=== PATIENT | male | born 1945 | race Caucasian/White ===

== ENCOUNTER 2019-10-10 13:46 | Outpatient (RCR) | payer MEDICARE ==
[2019-12-06] MEDS ORDERED: ZINC50TA51 PO (15:54)
[2019-12-06] MEDS ORDERED: LOSA50TA63 PO (15:54)
[2019-12-06] MEDS ORDERED: UBID100C17 PO (15:54)
[2019-12-06] MEDS ORDERED: OMEG12002 PO (15:54)
[2019-12-06] MEDS ORDERED: MULT-1056 PO (15:54)
[2019-12-06] MEDS ORDERED: MAGN400T39 PO (15:54)
[2019-12-06] MEDS ORDERED: CHOL-11 PO (15:54)
[2019-12-06] MEDS ORDERED: ASPI-1238 PO (15:54)
[2019-12-06] MEDS ORDERED: VITA-272 PO (15:54)
[2019-12-13] MEDS ORDERED: ACET1TAB43 PO (10:33)
[2019-12-13] MEDS ORDERED: CIPR-226 PO (10:33)
== END 2020-01-08 | disposition home or self-care (01) ==
LOC: ONC 13:46
PROVIDERS: ATTEND Radiology Radiation Oncology
DX: C61 Malignant neoplasm of prostate (principal); I10 Essential (primary) hypertension; M19.91 Primary osteoarthritis, unspecified site; Z85.828 Personal history of other malignant neoplasm of skin; Z87.891 Personal history of nicotine dependence; Z79.82 Long term (current) use of aspirin
CPT/HCPCS: 76873; G0463; 99205

== ENCOUNTER 2019-12-11 05:33 | Outpatient (RCR) | payer MEDICARE, BC ==
[~2019-12-11] VITALS: Ht 142.2 cm; Wt 70.0 kg
[~2019-12-11 05:33] MED LIST: ASPI-1238 PO; CHOL-11 PO; LOSA50TA63 PO; MAGN400T39 PO; MULT-1056 PO; OMEG12002 PO; UBID100C17 PO; VITA-272 PO; ZINC50TA51 PO
== END 2019-12-11 09:48 | disposition home or self-care (01) ==
LOC: PREOP 05:33
PROVIDERS: ATTEND Radiology Radiation Oncology
DX: Z01.812 Encounter for preprocedural laboratory examination (principal); Z20.828 Contact with and (suspected) exposure to other viral communicable diseases
CPT/HCPCS: 87635

== ENCOUNTER 2019-12-13 09:46 | Day surgery (SDC) | payer MEDICARE, BC ==
[~2019-12-13] VITALS: Ht 142 cm; Wt 70.0 kg
[2019-12-13] VITALS (9 sets, daily range): BP systolic 125–149; BP diastolic 71–86
--- NOTE | 2019-12-13 10:30 | Progress Note-Pre Operative ---
Pre-Operative Progress Note H&P Reviewed The H&P was reviewed, patient examined and no changes noted. Date Seen by Provider: Dec 13, 2019 Time Seen by Provider: : Date H&P Reviewed: Dec 13, 2019 Time H&P Reviewed: : Pre-Operative Diagnosis: Prostate cancer cT1c, PSA 11, [place] 6 ISAAC OCHOA MD Dec 13, 2019 10:30
[2019-12-13] MEDS ORDERED: CIPR-226 PO (10:33)
[2019-12-13] MEDS ORDERED: ACET1TAB43 PO (10:33)
--- NOTE | 2019-12-13 10:35 | Discharge Inst-Simple/Standard ---
Discharge Inst-Standard Reconcile Patient Problems Problems Reviewed?: Yes Discharge Medications New, Converted or Re-Newed RX: RX Given to Pt/Family Patient Instructions/Follow Up Plan of Care/Instructions/FU: 1)arriaga catheter removal at Dr. Pena's office Wednesday12/18/19 at 9:30 am 2)surgical follow up with Dr. Pena 12/28/19 at 11:15 am 3)one month post implant scan at [facility] cancer center 01/09/20 at 11:00 am Activity as Tolerated: Yes Discharge Diet: No Restrictions ISAAC OCHOA MD Dec 13, 2019 10:35
[2019-12-13] MEDS ORDERED: LACTATED RINGERS 1,000 ML IV PRN (10:56)
[2019-12-13] MEDS ORDERED: LEVOFLOXACIN 500 MG/100 ML IV 100 ML IV ONE (11:00)
[2019-12-13] MEDS ORDERED: CATHETER FLUSH 10 ML SYR IV PRN (11:30)
[2019-12-13] MEDS ORDERED: BACITRACIN OINTMENT 28 GM TUBE ONE (12:11)
[2019-12-13] MEDS ORDERED: SEVOFLURANE (ULTANE) 15 ML INHAL SOLN ONE (12:13)
[2019-12-13] MEDS ORDERED: ONDANSETRON 4 MG/2 ML (SDV) Z0FRAN ONE (12:13)
[2019-12-13] MEDS ORDERED: LIDOCAINE PF 2% 5 ML (XYLOCAINE) VIAL ONE (12:13)
[2019-12-13] MEDS ORDERED: fentaNYL INJECTION 100 MCG/2 ML AMP ONE (12:13)
[2019-12-13] MEDS ORDERED: proPOfol 200 MG/20 ML (DIPRIVAN) VIAL IV ONE (12:13)
[2019-12-13] MEDS ORDERED: ONDANSETRON 4 MG/2 ML (SDV) Z0FRAN IVP PRN (13:30)
[2019-12-13] MEDS ORDERED: morphine INJ 10 MG/ML 1ML (SYR OR VIAL) IVP ONE (13:30)
[2019-12-13] MEDS ORDERED: MEPERIDINE (DEMEROL) INJ 50 MG/ML IVP ONE (13:30)
--- NOTE | 2019-12-13 13:49 | Progress Note-Post Operative ---
Post-Operative Progess Note Surgeon (s)/Gas Welding Machine Operator (s) Surgeon ISAAC OCHOA MD Gas Welding Machine Operator: Rozina BENJAMIN MD Pre-Operative Diagnosis Prostate cancer cT1c, PSA 11, [place] 6 Post-Operative Diagnosis Same as preop Procedure & Operative Findings Date of Procedure 12/13/19 Procedure Performed/Findings (1) 100% Cesium 131 permanent prostate seed implant (2) Injection of biodegradable hydrogel prostate-rectal spacer utilizing the SpaceOAR system (3) Cystogram Prostate volume 50.4 cc Anesthesia Type General Estimated Blood Loss Estimated blood loss (mL): Minimal Specimens/Packing Specimens Removed N/A Packing: N/A ISAAC OCHOA MD Dec 13, 2019 13:49
--- NOTE | 2019-12-13 13:56 | Anesthesia-General Post-Op ---
General Patient Condition Mental Status/LOC: Same as Preop Cardiovascular: Satisfactory Nausea/Vomiting: Absent Respiratory: Satisfactory Pain: Controlled Complications: Absent Post Op Complications Complications None Follow Up Care/Instructions Patient Instructions None needed. Anesthesia/Patient Condition Patient Condition Patient is doing well, no complaints, stable vital signs, no apparent adverse anesthesia problems. No complications reported per nursing. STEVEN CAIN CRNA Dec 13, 2019 13:56
--- NOTE | 2019-12-13 14:34 | Diagnostic Imaging Report ---
INDICATION: Fluoroscopy during prostate brachytherapy. FINDINGS: Fluoroscopy was provided during prostate brachytherapy. 10 seconds of fluoroscopic time were utilized. A single image was obtained demonstrating multiple radiation seed implants within the prostate. Contrast is identified within the urinary bladder. IMPRESSION: Fluoroscopy during prostate brachytherapy. Dictated by: Dictated on workstation # [id number]
== END 2019-12-13 15:50 ==
LOC: SDC 09:46
PROVIDERS: ATTEND Radiology Radiation Oncology
DX: C61 Malignant neoplasm of prostate (principal); I10 Essential (primary) hypertension; M06.9 Rheumatoid arthritis, unspecified; M47.20 Other spondylosis with radiculopathy, site unspecified; Z79.899 Other long term (current) drug therapy; Z79.82 Long term (current) use of aspirin; Z85.828 Personal history of other malignant neoplasm of skin; Z87.891 Personal history of nicotine dependence
CPT/HCPCS: 55874; 76000; 76965; 77290; 77318; 77332; 77370; 77470; 77778; 87081; C1715 ×2; C2643

== ENCOUNTER 2020-01-09 10:37 | Outpatient (RCR) | payer MEDICARE, BC ==
[~2020-01-09 10:37] MED LIST changes: +ACET1TAB43 PO; +CIPR-226 PO
== END 2020-04-08 | disposition home or self-care (01) ==
LOC: ONC 10:37
PROVIDERS: ATTEND Radiology Radiation Oncology
DX: C61 Malignant neoplasm of prostate (principal); I10 Essential (primary) hypertension; M19.91 Primary osteoarthritis, unspecified site; Z85.828 Personal history of other malignant neoplasm of skin; Z87.891 Personal history of nicotine dependence; Z79.82 Long term (current) use of aspirin
CPT/HCPCS: 77290; 77295

== ENCOUNTER 2020-06-06 13:31 | Outpatient (RCR) | payer MEDICARE, BC | END 2020-09-04 | disposition home or self-care (01) | LOC: ONC 13:31 | PROVIDERS: ATTEND Radiology Radiation Oncology | DX: Z51.11 Encounter for antineoplastic chemotherapy (principal); C61 Malignant neoplasm of prostate; I10 Essential (primary) hypertension; M19.91 Primary osteoarthritis, unspecified site; Z85.828 Personal history of other malignant neoplasm of skin; Z87.891 Personal history of nicotine dependence; Z79.82 Long term (current) use of aspirin | CPT/HCPCS: 84153; G0463; 99213 ==